=== PATIENT | male | born 1975 | race Two or more races ===

== ENCOUNTER 2022-02-24 03:24 | Emergency (ER) | payer MEDICAID, OTHER ==
[~2022-02-24] VITALS: Ht 182.9 cm; Wt 62.3 kg
[2022-02-24 03:40] VITALS: BP 136/101
[2022-02-24] MEDS ORDERED: IBUP800T26 PO (05:27)
== END 2022-02-24 05:50 | disposition home or self-care (01) ==
LOC: ER 03:24
DX: R25.2 Cramp and spasm (principal); F17.210 Nicotine dependence, cigarettes, uncomplicated; F12.10 Cannabis abuse, uncomplicated
CPT/HCPCS: 82962